=== PATIENT | female | born 1945 | race Caucasian/White ===

== ENCOUNTER 2019-11-24 15:07 | Emergency (ER) | payer OTHER ==
[~2019-11-24] VITALS: Ht 165.1 cm; Wt 88.0 kg
[2019-11-24] MEDS ORDERED: ELIQUIS5 MG PO (16:00)
[2019-11-24] MEDS ORDERED: BACLOFEN 10MG T10 MG PO (16:00)
[2019-11-24] MEDS ORDERED: VITAMIN D3250 MC2 PO (16:01)
[2019-11-24] MEDS ORDERED: BIOTIN5 MG PO (16:01)
[2019-11-24] MEDS ORDERED: FLEXERIL PO (16:03)
[2019-11-24] MEDS ORDERED: COZAAR 25 MG TA25 M2 PO (16:03)
[2019-11-24] MEDS ORDERED: LABETALOL HCL100 MG PO (16:03)
[2019-11-24] MEDS ORDERED: FLONASE 0.05%50 MCG NARES (16:03)
[2019-11-24] MEDS ORDERED: OLANZAPINE ODT5 MG PO (16:04)
[2019-11-24] MEDS ORDERED: MYRBETRIQ50 MG PO (16:04)
[2019-11-24] MEDS ORDERED: RESTORIL30 MG PO (16:05)
[2019-11-24] MEDS ORDERED: ZIPRASIDONE HCL60 MG PO (16:05)
[2019-11-24 17:57] LABS: ABSOLUTE NEUTROPHILS 3.7 thou/uL (1.4-8.2); EOSINOPHILS 1.5 % (0.0-3.0); HEMATOCRIT 30.9 % (37.0-47.0); HEMOGLOBIN 9.8 gm/dL (12.0-15.0); LYMPHOCYTES 33.8 % (24.0-44.0); MCH 21.2 pg (26.0-34.0); MCHC 31.8 g/dL (28.0-37.0); MCV 66.7 fL (80.0-100.0); MONOCYTES 6.8 % (1.0-8.0); PLATELET COUNT 466 thou/uL (150-400); POLYS 56.9 % (36.0-66.0); RBC 4.64 mil/uL (4.20-5.00); RDW 19.8 % (10.5-14.5); WBC 6.5 thou/uL (4.0-11.0)
[2019-11-24 18:09] LABS: ANION GAP 8 mmol/L (7-16); BUN 36 mg/dL (7-18); CALCIUM 9.8 mg/dL (8.5-10.1); CHLORIDE 101 mmol/L (98-107); CO2 27 mmol/L (21-32); CREATININE 1.2 mg/dL (0.6-1.0); GLUCOSE 94 mg/dL (74-106); POTASSIUM 4.6 mmol/L (3.5-5.1); SODIUM 136 mmol/L (136-145)
[2019-11-24 18:16] LABS: ALBUMIN 3.6 g/dL (3.4-5.0); SALICYLATE < 2.8 mg/dL (2.8-20.0); SGOT 16 U/L (15-37); SGPT 22 U/L (30-65); TOTAL BILIRUBIN 0.3 mg/dL (0.2-1.0); TOTAL PROTEIN 7.5 g/dL (6.4-8.2)
[2019-11-24 18:34] LABS: ANISOCYTOSIS 1+; HYPOCHROMASIA 1+; MICROCYTES 2+
[2019-11-24 19:28] LABS: URINE BILIRUBIN NEGATIVE (Negative); URINE BLOOD TRACE (Negative); URINE CLARITY CLEAR; URINE COLOR YELLOW; URINE GLUCOSE-RANDOM* NEGATIVE (Negative); URINE KETONES NEGATIVE (Negative); URINE LEUKOCYTES-REFLEX NEGATIVE (Negative); URINE NITRITE-REFLEX NEGATIVE (Negative); URINE PROTEIN (DIPSTICK) NEGATIVE (Negative); URINE SPECIFIC GRAVITY <= 1.005 (1.005-1.035); URINE UROBILINOGEN 0.2 E.U./dl (0.2-1.0)
[2019-11-24 19:40] VITALS: BP 135/97
[2019-11-24 19:41] LABS: AMP/METHAMP Negative (Negative); BARBITURATES Negative (Negative); BENZODIAZEPINES Negative (Negative); COCAINE Negative (Negative); METHADONE Negative (Negative); OPIATES POSITIVE (Negative); PCP Negative (Negative)
--- NOTE | 2019-11-25 07:35 | EKG ---
[facility] [place] [address] ELECTROCARDIOGRAM REPORT Name: KARY JUAREZ John Room #: DEP [facility]#: [id number] Admission: 11/24/19 Attend Phys: Discharge: 11/24/19 Date of : 49 Report #: [id number] THIS REPORT FOR: cc: Stephen Donohue MD, Charles W. 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: [facility] : 1945 Requested By: Rosamaria Ram Order Number: [id number] MD: Stiven Sorto Measurements Intervals [place] Rate: 63 P: 51 RI: 175 QRS: 24 QRSD: 112 T: 27 QT: 433 QTc: 444 Interpretive Statements Sinus rhythm No significant abnormality No previous ECG available for comparison Electronically Signed On 11-25-2019 7:34:58 CDT by Stiven Sorto [email or web address] <ELECTRONICALLY SIGNED> By: Stiven Sorto MD, [facility] 11/25/19 0734 [id number] 42 Stiven Sorto MD, [facility] /EPI
== END 2019-11-24 19:40 | disposition home or self-care (01) ==
LOC: ER 15:07
PROVIDERS: Physician Assistant
DX: Z03.818 Encounter for observation for suspected exposure to other biological agents ruled out (principal); F03.90 Unspecified dementia, unspecified severity, without behavioral disturbance, psychotic disturbance, mood disturbance, and anxiety; Z79.899 Other long term (current) drug therapy